=== PATIENT | female | born 1965 | race Caucasian/White ===

== ENCOUNTER → 2018-08-05 | Outpatient (CLI) | payer BC | END | disposition home or self-care (01) | LOC: MAMMO 11:07 | PROVIDERS: ATTEND Neuromusculoskeletal Medicine & OMM | DX: Z12.31 Encounter for screening mammogram for malignant neoplasm of breast (principal) | CPT/HCPCS: 77067 ==

== ENCOUNTER → 2018-09-25 | Outpatient (CLI) | payer BC ==
--- NOTE | 2018-09-26 10:30 | RAD ---
DATE: 09/25/2018 3:00 PM EXAM: DIGITAL DIAGNOSTIC RT HISTORY: further evaluation of a finding noted on her most recent screening mammographic examination. On that examination indeterminate microcalcifications were reported within the right breast COMPARISON: 08/05/2018 Spot compression views of the right breast in the ML and CC positions was performed. FINDINGS: Right breast calcifications are grossly stable in appearance. IMPRESSION: Right indeterminate microcalcifications, findings for which additional short-term imaging is follow-up advised. BI-RADS CATEGORY: 3 PROBABLY BENIGN FINDING(S)-SHORT INTERVAL FOLLOW-UP SUGGESTED RECOMMENDED FOLLOW-UP: 6M 6 MONTH FOLLOW-UP. 6 month follow-up mammography is recommended, to include spot magnification views. PQRS compliance statement: Patient information was entered into a reminder system with a target due date 02/23/2019 for the next mammogram. Mammography is a sensitive method for finding small breast cancers, but it does not detect them all and is not a substitute for careful clinical examination. A negative mammogram does not negate a clinically suspicious finding and should not result in delay in biopsying a clinically suspicious abnormality. "Our facility is accredited by the [employer] Mammography Program."
== END | disposition home or self-care (01) ==
LOC: MAMMO 13:03
PROVIDERS: ATTEND Physician Assistant
DX: R92.8 Other abnormal and inconclusive findings on diagnostic imaging of breast (principal)
CPT/HCPCS: 77065